=== PATIENT | male | born 1980 | race Two or more races ===

== ENCOUNTER 2016-07-11 12:39 | Emergency (ER) | payer MEDICAID ==
[~2016-07-11] VITALS: Ht 172.7 cm; Wt 90.7 kg
[2016-07-11 13:38] VITALS: BP 148/96
== END 2016-07-11 13:55 | disposition home or self-care (01) ==
LOC: ER 12:40
DX: H10.9 Unspecified conjunctivitis (principal)

== ENCOUNTER 2018-07-25 05:24 | Emergency (ER) | payer MEDICAID ==
[~2018-07-25] VITALS: Ht 172.7 cm; Wt 88.5 kg
[2018-07-25 05:49] VITALS: BP 150/102
== END 2018-07-25 07:49 | disposition home or self-care (01) ==
LOC: ER 05:24
DX: J02.9 Acute pharyngitis, unspecified (principal); R51 Headache

== ENCOUNTER 2020-11-30 21:30 | Emergency (ER) | payer MEDICAID ==
[~2020-11-30] VITALS: Ht 172.7 cm; Wt 95.3 kg
[2020-11-30 23:02] VITALS: BP 137/94
[2020-11-30] MEDS ORDERED: LIDOCAINE 1% HCL (LOCAL ANESTH.) INJ 20ML MDV IJ ONE (23:45)
== END 2020-12-01 00:35 | disposition home or self-care (01) ==
LOC: ER 21:32
DX: S60.450A Superficial foreign body of right index finger, initial encounter (principal); L03.011 Cellulitis of right finger; E66.9 Obesity, unspecified; Z68.31 Body mass index [BMI] 31.0-31.9, adult; W26.8XXA Contact with other sharp object(s), not elsewhere classified, initial encounter; Y93.89 Activity, other specified; Y92.89 Other specified places as the place of occurrence of the external cause; Y99.8 Other external cause status
CPT/HCPCS: 10120; 99284; J2001

== ENCOUNTER 2021-11-14 19:52 | Emergency (ER) | payer MEDICAID ==
[~2021-11-14] VITALS: Ht 172.7 cm; Wt 95.0 kg
[2021-11-14 21:05] LABS: Basophils # (auto) 0.1 10 ^3/uL (0-0.2); Basophils % (auto) 0.5 % (0.0-2.0); Eosinophils # (auto) 0.1 10 ^3/uL (0-0.8); Hematocrit 42.3 % (41.0-53.0); Hemoglobin 14.3 g/dL (13.5-17.5); Lymphocytes # (auto) 1.9 10 ^3/uL (0.4-5.4); Lymphocytes % (auto) 15.7 % (10.0-50.0); Mean Corpuscular Hemoglobin 30.3 pg (28.0-32.0); Mean Corpuscular Hgb Conc. 33.9 g/dL (32.0-36.0); Mean Corpuscular Volume 89.6 fL (80.0-100.0); Monocytes # (auto) 0.7 10 ^3/uL (0-1.3); Neutrophils # (auto) 9.4 10 ^3/uL (1.6-8.6); Neutrophils % (auto) 76.8 % (37.0-80.0); Red Blood Cells 4.72 10^6/uL (4.5-5.90); Red Cell Distribution Width 12.8 % (11.8-14.3); White Blood Cell 12.2 10^3/uL (4.4-10.8)
[2021-11-14 21:38] LABS: Urine Bacteria NONE SEEN /hpf (None Seen); Urine Blood 3+ /uL (Negative); Urine Mucus FEW (None Seen); Urine Specific Gravity 1.027 (1.001-1.035); Urine WBC 3 /hpf (0 - 3)
[2021-11-14] MEDS ORDERED: KETOROLAC TROMETH 30 MG/ML 1ML VIAL IV ONE (21:45)
[2021-11-14] MEDS ORDERED: SODIUM CHLORIDE 0.9% 1,000 ML IV ONE (21:45)
[2021-11-14] MEDS ORDERED: HYDROcodone-ACET 5/325MG TAB PO ONE (21:45)
[2021-11-14 21:50] LABS: Albumin 4.3 g/dL (3.4-5.0); BUN/Creatinine Ratio 13.9; Calcium 8.8 mg/dL (8.5-10.1); Potassium 3.5 mmol/L (3.5-5.1)
[2021-11-14 21:53] LABS: Bilirubin, Total 0.4 mg/dL (0.2-1.0); Total Protein 7.9 g/dL (6.4-8.2)
[2021-11-15] MEDS ORDERED: TAM04C PO (01:35)
[2021-11-15] MEDS ORDERED: HYDR-4902 PO (01:41)
[2021-11-15 01:56] VITALS: BP 146/89
== END 2021-11-15 01:47 | disposition home or self-care (01) ==
LOC: ER 19:52
DX: N20.0 Calculus of kidney (principal); R11.2 Nausea with vomiting, unspecified; I10 Essential (primary) hypertension
CPT/HCPCS: 36415; 74176; 80053; 81001; 85025; 96361; 96374; 99284; J1885; J7030